=== PATIENT | male | born 1960 | race Caucasian/White ===

== ENCOUNTER 2023-01-08 10:22 | Outpatient (OUT) | payer BC, SELFPAY ==
[2023-01-08 10:55] LABS: Basophils Absolute Auto 0.1 10^3/uL (0.0-0.1); Basophils Percent Auto 0.9 % (0.2-2.0); Eosinophils Absolute Auto 0.1 10^3/uL (0.0-0.7); Eosinophils Percent Auto 0.8 % (0.9-7.0); Hematocrit 44.6 % (42.0-54.0); Hemoglobin 15.1 g/dL (14.0-18.0); Immature Granulocytes Abs Auto 0.03 10^3/uL (0.00-0.03); Immature Granulocytes Pct Auto 0.4 % (0.0-0.5); Lymphocytes Absolute Auto 2.1 10^3/uL (1.2-3.8); Lymphocytes Percent Auto 26.8 % (20.5-60.0); Mean Corpuscular HGB Conc 33.9 g/dL (29.9-35.2); Mean Corpuscular Hemoglobin 29.7 pg (25.9-34.0); Mean Corpuscular Volume 87.6 fL (80.0-94.0); Mean Platelet Volume 9.6 fL (9.5-13.5); Monocytes Absolute Auto 0.4 10^3/uL (0.3-0.8); Monocytes Percent Auto 5.5 % (1.7-12.0); Neutrophils Absolute Auto 5.1 10^3/uL (1.4-6.5); Neutrophils Percent Auto 65.6 % (43.0-75.0); Platelet Count 187 10^3/uL (150-450); Red Blood Count 5.09 10^6/uL (4.70-6.10); Red Cell Distribution Width 11.5 % (11.0-15.0); White Blood Count 7.8 10^3/uL (4.0-11.0)
[2023-01-08 11:35] LABS: Estimated Average Glucose 103 mg/dL; Glycohemoglobin A1C 5.2 % (4.5-6.2)
[2023-01-08 12:22] LABS: Alanine Aminotransferase 12 U/L (16-63); Albumin Globulin Ratio 1.2; Albumin Level 3.8 g/dL (3.4-5.0); Alkaline Phosphatase 91 U/L (46-116); Anion Gap 8.7; Aspartate Amino Transferase 13 U/L (15-37); BUN Creatinine Ratio 11.8; Bilirubin Total 0.5 mg/dL (0.2-1.0); Calcium 8.7 mg/dL (8.5-10.1); Carbon Dioxide 29.4 mmol/L (21.0-32.0); Chloride 103 mmol/L (98-107); Chol HDL Ratio 3.9; Cholesterol 181 mg/dL (<=200); Estimated GFR (African America >60 (>=60); Estimated GFR (Non-African Ame >60 (>=60); Free T3 2.21 pg/mL (2.18-3.98); Globulin 3.1 g/dL; Glucose 90 mg/dL (74-106); HDL Cholesterol 47 mg/dL (40-60); LDL Cholesterol Calculated 116.2 mg/dL; Potassium 4.1 mmol/L (3.5-5.1); Sodium 137 mmol/L (136-145); Thyroid Stimulating Hormone 1.784 uIU/mL (0.358-3.740); Total Protein 6.9 g/dL (6.4-8.2); Triglycerides 89 mg/dL (<=150); VLDL CHOLESTEROL 17.8 mg/dL
[2023-01-09 05:07] LABS: PSA, Free 0.71 ng/mL; Prostate Specific Ag 3.4 ng/mL (0.0-4.0)
== END 2023-01-08 10:23 | disposition home or self-care (01) ==
LOC: LAB 10:25
PROVIDERS: PCP Family Medicine; Visit Provider Family Medicine
DX: Z00.00 Encounter for general adult medical examination without abnormal findings (principal)
CPT/HCPCS: 36415; 80053; 80061; 83036; 84153; 84154; 84436; 84443; 84481; 85025

== ENCOUNTER 2024-01-18 09:19 | Outpatient (OUT) | payer BC, SELFPAY ==
[2024-01-18 10:09] LABS: Basophils Absolute Auto 0.1 10^3/uL (0.0-0.1); Basophils Percent Auto 1.1 % (0.2-2.0); Eosinophils Absolute Auto 0.1 10^3/uL (0.0-0.7); Hematocrit 44.4 % (42.0-54.0); Hemoglobin 14.9 g/dL (14.0-18.0); Immature Granulocytes Abs Auto 0.01 10^3/uL (0.00-0.03); Immature Granulocytes Pct Auto 0.2 % (0.0-0.5); Lymphocytes Percent Auto 32.5 % (20.5-60.0); Mean Corpuscular HGB Conc 33.6 g/dL (29.9-35.2); Mean Corpuscular Hemoglobin 29.4 pg (25.9-34.0); Mean Corpuscular Volume 87.7 fL (80.0-94.0); Mean Platelet Volume 9.7 fL (9.5-13.5); Monocytes Absolute Auto 0.4 10^3/uL (0.3-0.8); Monocytes Percent Auto 6.3 % (1.7-12.0); Neutrophils Absolute Auto 3.7 10^3/uL (1.4-6.5); Neutrophils Percent Auto 58.9 % (43.0-75.0); Platelet Count 181 10^3/uL (150-450); Red Blood Count 5.06 10^6/uL (4.70-6.10); Red Cell Distribution Width 11.9 % (11.0-15.0); White Blood Count 6.2 10^3/uL (4.0-11.0)
[2024-01-18 10:39] LABS: Alanine Aminotransferase 16 U/L (16-63); Albumin Globulin Ratio 1.1; Albumin Level 3.5 g/dL (3.4-5.0); Alkaline Phosphatase 93 U/L (46-116); Anion Gap 12.6; Aspartate Amino Transferase 16 U/L (15-37); BUN Creatinine Ratio 16.3; Bilirubin Total 0.5 mg/dL (0.2-1.0); Calcium 8.8 mg/dL (8.5-10.1); Carbon Dioxide 25.8 mmol/L (21.0-32.0); Chloride 103 mmol/L (98-107); Chol HDL Ratio 4.1; Cholesterol 186 mg/dL (<=200); Estimated Average Glucose 108 mg/dL; Estimated GFR (African America >60 (>=60); Estimated GFR (Non-African Ame >60 (>=60); Globulin 3.2 g/dL; Glucose 96 mg/dL (74-106); Glycohemoglobin A1C 5.4 % (4.5-6.2); HDL Cholesterol 45 mg/dL (40-60); LDL Cholesterol Calculated 121.8 mg/dL; Potassium 4.4 mmol/L (3.5-5.1); Sodium 137 mmol/L (136-145); Thyroid Stimulating Hormone 2.122 uIU/mL (0.358-3.740); Total Protein 6.7 g/dL (6.4-8.2); Triglycerides 96 mg/dL (<=150); VLDL CHOLESTEROL 19.2 mg/dL
[2024-01-18 10:58] LABS: Free T4 0.74 ng/dL (0.76-1.46)
[2024-01-19 04:07] LABS: PSA, Free 0.88 ng/mL; Prostate Specific Ag 3.8 ng/mL (0.0-4.0)
== END 2024-01-18 09:20 | disposition home or self-care (01) ==
LOC: LAB 09:20
PROVIDERS: PCP Family Medicine; Visit Provider Family Medicine
DX: Z00.00 Encounter for general adult medical examination without abnormal findings (principal); R97.20 Elevated prostate specific antigen [PSA]
CPT/HCPCS: 36415; 80053; 80061; 83036; 84153; 84154; 84439; 84443; 85025

== ENCOUNTER 2024-01-25 07:26 | Outpatient (OUT) | payer BC, SELFPAY ==
--- OUTSIDE RECORDS SUMMARY | 2024-01-25 07:31 | XMS_ITS | CCD ---
Author Organization [facility] Care Team Providers Care Art Gallery Director Name Role Phone ODETTE ., DR DUFF Admitting Unavailable HOY ., DR DUFF Attending Unavailable HOY ., DR DUFF Primary Care Unavailable HOY ., DR DUFF Consulting Unavailable LUPIS HERNDON Admitting Unavailable LUPIS HERNDON Attending Unavailable HOY ., DR DUFF Primary Care Unavailable LUPIS HERNDON Consulting Unavailable HOY ., DR DUFF Admitting Unavailable HOY ., DR DUFF Attending Unavailable HOY ., DR DUFF Primary Care Unavailable HOY ., DR DUFF Consulting Unavailable HOY ., DR DUFF Admitting Unavailable HOY ., DR DUFF Attending Unavailable HOY ., DR DUFF Primary Care Unavailable KARLOY ., DR DUFF Consulting Unavailable Omega Pino Primary Care Physician Omega Pino Referring Unavailable Paul SMITH Attending Unavailable LUPIS HERNDON Attending Unavailable Allergies Allergy Classification Reported Allergen(s) Allergy Type Date of Onset Reaction(s) Facility (1 source) No Known Medication Allergies; Translations: [No Known Medication Allergies] Propensity to adverse reactions (disorder) [facility] Repository Medications Current Medications Medication Drug Class(es) Dates Sig (Normalized) Sig (Original) pantoprazole 40 mg extended release oral tablet (2 sources) Proton Pump Inhibitor Start: 01-19-2020 take 1 tablet by mouth once daily pantoprazole 40 mg Oral EC Tab 40 mg = 1 tab(s), Oral, Daily, # 30 tab(s), Refills(s) 0 Start Date: 01/19/20 Status: Ordered Problems Active Problems Problem Classification Problem Date Documented Date Episodic/Chronic Abdominal hernia (2 sources) Inguinal hernia; Translations: [Unilateral inguinal hernia, without obstruction or gangrene, not specified as recurrent] Onset: 12-21-2023 Episodic Esophageal disorders (3 sources) Gastroesophageal reflux disease 01-19-2020 Chronic Hyperplasia of prostate (8 sources) Benign prostatic hyperplasia with lower urinary tract symptoms; Translations: [Benign prostatic hypertrophy with outflow obstruction] Onset: 08-24-2022 Chronic Other diseases of kidney and ureters (1 source) Urinary tract obstruction; Translations: [Other obstructive and reflux uropathy] Onset: 09-03-2022 Episodic Other male genital disorders (3 sources) Male erectile dysfunction, unspecified; Translations: [Erectile dysfunction] Onset: 09-03-2022 Chronic Other nutritional; endocrine; and metabolic disorders (1 source) Overweight 12-16-2023 Episodic Other nutritional; endocrine; and metabolic disorders (1 source) Overweight in adulthood with body mass index of 25 or more but less than 30 12-21-2023 Episodic Other screening for suspected conditions (not mental disorders or infectious disease) (8 sources) Elevated prostate specific antigen [PSA]; Translations: [Encounter for screening for malignant neoplasm of prostate] Onset: 12-05-2021 Episodic Residual codes; unclassified (1 source) Tobacco user; Translations: [Tobacco use] Onset: 12-21-2023 Episodic Residual codes; unclassified (1 source) Family history of cancer of colon 12-16-2023 Episodic Screening and history of mental health and substance abuse codes (1 source) Tobacco use and exposure - finding 12-21-2023 Chronic Substance-related disorders (2 sources) Smoker 01-19-2020 Chronic Comment on above: Added secondary to d ocumentation in Social History. Unclassified (1 source) CONTACT W/AND (SUSP) EXPOS COVID-19; Translations: [CONTACT W/AND (SUSP) EXPOS COVID-19] Onset: 09-11-2021 Past or Other Problems Problem Classification Problem Date Documented Da te Episodic/Chronic Acute bronchitis (4 sources) Acute bronchitis, unspecified; Translations: [ACUTE BRONCHITIS UNSPECIFIED] Onset: 09-09-2021 Episodic Results Test Name Value Interpretation Reference Range Facil ity Ambulatory Visit Summaryon 0 12-21-2023 Ambulatory Visit Summary Ambulatory Visit Summary FAISAL GARCIA :1960 Visit Date:12/21/2023 Ambulatory Visit Instructions Your Diagnosis Reducible right inguinal hernia Tobacco use Your Care Team Attending Physician - SARAH WALDEN, Paul R Primary Care Physician - Omega Pino MD Referring Physician - Omega Pino MD This Is Your Medications List Contact prescribing physician if questions or concerns pantoprazole (pantoprazole 40 mg Oral EC Tab) Procedures Performed Closed fracture of great toe. Discharge Vitals Heart Rate (Peripheral) 74 Respiratory Rate 16 Blood Pressure 121/77 Height 177.8 cm Height 70 in Weight 82.7 kg Weight 181.94 lb BMI 26.16 Medications What How Much When Instructions Unchanged pantoprazole (pantoprazole 40 mg Oral EC Tab) 1 Tablets By Mouth Every day Contact prescribing physician if questions or concerns Allergies No Known Allergies No Known Medication Allergies Problems Ongoing - Any problem that you are currently receiving treatment for. BMI 26.0-26.9,adult BPH with elevated PSA BPH with urinary obstruction Elevated PSA Erectile dysfunction Family history of colon cancer in father Gastroesophageal reflux disease Overweight Reducible right inguinal hernia Smoker Tobacco use Historical - Any problem that you are no longer receiving treatment for. BPH - benign prostatic hyperplasia GERD - Gastro-esophageal reflux disease Patient Survey You may receive a survey via text or e-mail asking about your office visit. Please share your experience with us by completing your survey. We appreciate your feedback and thank you for choosing us for your care. Normal [facility] Physician Referralon 024 Physician Referral [phone] [id number]. [id number] Normal [facility] PSA, FREE AND TOTAL RATIOon 12-05-2021 % Free PSA 18.3 % Normal [facility] Comment on above: Result Comment: The table below lists the probability of prostate cancer for men with non-suspicious JAMILA results and total PSA between 4 and 10 ng/mL, by patient age (Latoya et al, OZZIE 1998, 279:1542). % Free PSA 50-64 yr 65-75 yr 0.00-10.00% 56% 55% 10.01-15.00% 24% 35% 15.01-20.00% 17% 23% 20.01-25.00% 10% 20% >25.00% 5% 9% Please note: Latoya et al did not make specific recommendations regarding the use of percent free PSA for any other population of men. Performed By: #### P SAFREE #### [facility] [address] [place] [address] Dr. Odell Gates Prostate specific Ag [Mass/Vol] 4.0 ng/mL Normal 0.0-4.[address] [facility] Comment on above: Result Comment: Eduardo HAWLEY methodology. . According to the [place] [employer], Serum PSA should decrease and remain at undetectable levels after radical prostatectomy. The AUA defines biochemical recurrence as an initial PSA value 0.2 ng/mL or greater followed by a subsequent confirmatory PSA value 0.2 ng/mL or greater. Values obtained with different assay methods or kits cannot be used interchangeably. Results cannot be interpreted as absolute evidence of the presence or absence of malignant disease. Performed By: #### P SAFREE #### [facility] [address] [place] [address] Dr. Odell Gates PSA, Free 0.73 ng/mL Normal N/A [facility] Comment on above: Result Comment: Eduardo powell ECLIA methodology. Performed By: #### P SAFREE #### [facility] [address] [place] [address] Dr. Odell Gates CBC AUTO DIFFon 12-03-2021 BASO # 0.1 103/ul Normal 0.0-0.[address] [facility] Comment on above: Performed By: #### C BC #### [facility] [address] [place] [address] Dr. Odell Gates Basophils/100 WBC (Bld) 0.7 % Normal 0.2-2.[address] [facility] Comment on above: Performed By: #### C BC #### [facility] [address] [place] [address] Dr. Odell Gates EO # 0.1 103/ul Normal 0.0-0.[address] [facility] Comment on above: Performed By: #### C BC #### [facility] [address] [place] [address] Dr. Odell Gates Eosinophils/100 WBC (Bld) 1.0 % Normal 0.9-7.[address] [facility] Comment on above: Performed By: #### C BC #### [facility] [address] [place] [address] Dr. Odell Gates Erythrocyte distribution width (RBC) [Ratio] 12.0 % Normal 11.0-15.[address] [facility] Comment on above: Performed By: #### C BC #### [facility] [address] [place] [address] Dr. Odell Gates Hematocrit (Bld) [Volume fraction] 46.7 % Normal 42.0-54.[address] [facility] Comment on above: Performed By: #### C BC #### [facility] [address] [place] [address] Dr. Odell Gates Hemoglobin (Bld) [Mass/Vol] 15.8 g/dL Normal 14.0-18.[address] [facility] Comment on above: Performed By: #### C BC #### [facility] [address] [place] [address] Dr. Odell Gates IG # 0.02 10e3/ul Normal 0.00-0.[address] [facility] Comment on above: Performed By: #### C BC #### [facility] [address] [place] [address] Dr. Odell Gates IG % 0.2 % Normal 0.0-0.[address] [facility] Comment on above: Performed By: #### C BC #### [facility] [address] [place] [address] Dr. Odell Gates LYMPH # 3.0 103/ul Normal 1.2-3.[address] [facility] Comment on above: Performed By: #### C BC #### [facility] [address] [place] [address] Dr. Odell Gates Lymphocytes/100 WBC (Bld) 34.2 % Normal 20.5-60.[address] [facility] Comment on above: Performed By: #### C BC #### [facility] [address] [place] [address] Dr. Odell Gates MANUAL DIFF REQ NO Normal [facility] Comment on above: Performed By: #### C BC #### [facility] [address] [place] [address] Dr. Odell Gates MCH (RBC) [Entitic mass] 29.9 pg Normal 25.9-34.0 [facility] Comment on above: Performed By: #### C BC #### [facility] [address] [address] [address] Odell Gates MCHC (RBC) [Mass/Vol] 33.8 g/dL Normal 29.9-35.[address] [facility] Comment on above: Performed By: #### C BC #### [facility] [address] [address] [address] Odell Gates MCV (RBC) [Entitic vol] 88.3 fL Normal 80.0-94.[address] [facility] Comment on above: Performed By: #### C BC #### [facility] [address] [address] [address] Odell Gates MONO # 0.6 103/ul Normal 0.3-0.[address] [facility] Comment on above: Performed By: #### C BC #### [facility] [address] [place] [address] Dr. Odell Gates Monocytes/100 WBC (Bld) 7.2 % Normal 1.7-12.[address] [facility] Comment on above: Performed By: #### C BC #### [facility] [address] [place] [address] Dr. Odell Gates NEUT # 4.9 103/ul Normal 1.4-6.[address] [facility] Comment on above: Performed By: #### C BC #### [facility] [address] [address] [address] Odell Gates Neutrophils/100 WBC (Bld) 56.7 % Normal 43.0-75.[address] [facility] Comment on above: Performed By: #### C BC #### [facility] [address] [address] [address] Odell Gates Platelet mean volume (Bld) [Entitic vol] 9.2 fL Critically low 9.5-13.[address] [facility] Comment on above: Performed By: #### C BC #### [facility] [address] [address] [address] Odell Gates PLT 196 103/ul Normal 150-450 [facility] Comment on above: Performed By: #### C BC #### [facility] [address] [place] [address] Dr. Odell Gates RBC 5.29 106/ul Normal 4.70-6.[address] [facility] Comment on above: Performed By: #### C BC #### [facility] [address] [place] [address] Dr. Odell Gates WBC 8.7 103/ul Normal 4.0-11.[address] [facility] Comment on above: Performed By: #### C BC #### [facility] [address] [place] [address] Dr. Odell Gates GLYCOHEMOGLOBIN A1Con 2021 ADA RECOMMENDATION SEE BELOW Normal [facility] Comment on above: Result Comment: ADA RECOMMENDED LIMIT 4.0 - 6.0 ADA THERAPEUTIC TARGET < 7.0 ACTION SUGGESTED > 7.0 Performed By: #### A 1C #### [facility] [address] [place] [address] Dr. Odell Gates Glucose [Mass/Vol] 105 mg/dL Normal [facility] Comment on above: Performed By: #### A 1C #### [facility] [address] [place] [address] Dr. Odell Gates HbA1c (Bld) [Mass fraction] 5.3 % Normal 4.5-6.[address] [facility] Comment on above: Performed By: #### A 1C #### [facility] [address] [place] [address] Dr. Odell Gates LIPID PROFILEon 12-03-2021 CHOL-HDL RATIO NORM SEE BELOW Normal [facility] Comment on above: Result Comment: 3.3 - 4.4 LOW RISK 4.4 - 7.1 AVERAGE RISK 7.1 - 11.0 MODERATE RISK >11.0 HIGH RISK Performed By: #### L IPID, URIC, CMP #### [facility] [address] [place] [address] Dr. Odell Gates Cholesterol [Mass/Vol] 191 mg/dL Normal <=[address] [facility] Comment on above: Performed By: #### L IPID, URIC, CMP #### [facility] [address] [address] [address] Odell Gates Cholesterol in HDL [Mass/Vol] 44 mg/dL Normal 40-[address] [facility] Comment on above: Performed By: #### L IPID, URIC, CMP #### [facility] [address] [address] [address] Odell Gates Cholesterol in LDL [Mass/Vol] 126.2 mg/dL Normal [facility] Comment on above: Performed By: #### L IPID, URIC, CMP #### [facility] [address] [address] [address] Odell Gates Cholesterol.total/Cho lesterol in HDL [Mass ratio] 4.3 {ratio} Normal [facility] Comment on above: Performed By: #### L IPID, URIC, CMP #### [facility] [address] [address] [address] Odell Gates HDL NORMAL > or = 60 mg/dl - LO W CARDIOVASCULAR RISK <40 mg/dl - HIGH CARDIOVASCULAR RISK Normal [facility] Comment on above: Performed By: #### L IPID, URIC, CMP #### [facility] [address] [address] [address] Odell Gates LDL CALC NORMAL SEE BELOW Normal [facility] Comment on above: Result Comment: <100 mg/dl OPTIMAL 100 - 129 mg/dl NEAR OR ABOVE OPTIMAL 130 - 159 mg/dl BORDERLINE HIGH 160 - 189 mg/dl HIGH >190 mg/dl VERY HIGH Performed By: #### L IPID, URIC, CMP #### [facility] [address] [address] [address] Odell Gates Triglyceride [Mass/Vol] 104 mg/dL Normal <=150 [facility] Comment on above: Performed By: #### L IPID, URIC, CMP #### [facility] [address] [address] [address] Odell Gates VLDL CALC 20.8 mg/dL Normal [facility] Comment on above: Performed By: #### L IPID, URIC, CMP #### [facility] [address] [address] [address] Odell Gates OCC BLD IMMUNO SCREENon 11-20 OCCULT BLOOD Negative Normal NEGATIVE [facility] Comment on above: Performed By: #### O BSCRN #### [facility] [address] [address] [address] Odell Gates PROF 14(COMP METB)on 022 Albumin [Mass/Vol] 3.7 g/dL Normal 3.4-5.0 [facility] Comment on above: Performed By: #### L IPID, URIC, CMP #### [facility] [address] [address] [address] Odell Gates Albumin/Globulin [Mass ratio] 1.1 {ratio} Normal [facility] Comment on above: Performed By: #### L IPID, URIC, CMP #### [facility] [address] [place] [address] Dr. Odell Gates ALP [Catalytic activity/Vol] 83 U/L Normal 46-[address] [facility] Comment on above: Performed By: #### L IPID, URIC, CMP #### [facility] [address] [address] [address] Odell Gates ALT [Catalytic activity/Vol] 20 U/L Normal 16-[address] [facility] Comment on above: Performed By: #### L IPID, URIC, CMP #### [facility] [address] [place] [address] Dr. Odell Gates Anion gap [Moles/Vol] 11.9 mmol/L Normal [facility] Comment on above: Performed By: #### L IPID, URIC, CMP #### [facility] [address] [address] [address] Odell Gates AST [Catalytic activity/Vol] 16 U/L Normal 15-[address] [facility] Comment on above: Performed By: #### L IPID, URIC, CMP #### [facility] [address] [address] [address] Odell Gates Bilirubin [Mass/Vol] 0.4 mg/dL Normal 0.2-1.[address] [facility] Comment on above: Performed By: #### L IPID, URIC, CMP #### [facility] [address] [address] [address] Odell Gates Calcium [Mass/Vol] 9.0 mg/dL Normal 8.5-10.1 [facility] Comment on above: Performed By: #### L IPID, URIC, CMP #### [facility] [address] [address] [address] Odell Gates Chloride [Moles/Vol] 104 mmol/L Normal 98-107 [facility] Comment on above: Performed By: #### L IPID, URIC, CMP #### [facility] [address] [address] [address] Odell Gates CO2 [Moles/Vol] 26.3 mmol/L Normal 21.0-32.0 [facility] Comment on above: Performed By: #### L IPID, URIC, CMP #### [facility] [address] [address] [address] Odell Gates Creatinine [Mass/Vol] 1.10 mg/dL Normal 0.70-1.[address] [facility] Comment on above: Performed By: #### L IPID, URIC, CMP #### [facility] [address] [place] [address] Dr. Odell Gates EGFR-AF ISRAELI >60 Normal >=60 [facility] Comment on above: Performed By: #### L IPID, URIC, CMP #### [facility] [address] [address] [address] Odell Gates EGFR-NON AF ISRAELI >60 Normal >=[address] [facility] Comment on above: Performed By: #### L IPID, URIC, CMP #### [facility] [address] [address] [address] Odell Gates Globulin (S) [Mass/Vol] 3.3 g/dL Normal [facility] Comment on above: Performed By: #### L IPID, URIC, CMP #### [facility] [address] [address] [address] Odell Gates Glucose [Mass/Vol] 87 mg/dL Normal 74-106 [facility] Comment on above: Performed By: #### L IPID, URIC, CMP #### [facility] [address] [address] [address] Odell Gates Potassium [Moles/Vol] 4.2 mmol/L Normal 3.5-5.[address] [facility] Comment on above: Performed By: #### L IPID, URIC, CMP #### [facility] [address] [place] [address] Dr. Odell Gates Protein [Mass/Vol] 7.0 g/dL Normal 6.4-8.2 [facility] Comment on above: Performed By: #### L IPID, URIC, CMP #### [facility] [address] [place] [address] Dr. Odell Gates Sodium [Moles/Vol] 138 mmol/L Normal 136-145 [facility] Comment on above: Performed By: #### L IPID, URIC, CMP #### [facility] [address] [place] [address] Dr. Odell Gates Urea nitrogen [Mass/Vol] 17.0 mg/dL Normal 7.0-18.[address] [facility] Comment on above: Performed By: #### L IPID, URIC, CMP #### [facility] [address] [place] [address] Dr. Odell aGtes Urea nitrogen/Creatinine [Mass ratio] 15.5 mg/mg Normal [facility] Comment on above: Performed By: #### L IPID, URIC, CMP #### [facility] [address] [place] [address] Dr. Odell Gates URIC ACID SERUMon 12-03-2021 Urate [Mass/Vol] 5.0 mg/dL Normal 3.5-7.2 [facility] Comment on above: Performed By: #### L IPID, URIC, CMP #### [facility] [address] [place] [address] Dr. Odell Gates [facility]on 08-21 SARS-CoV-2 (COVID-19) RNA PRAFUL+probe Ql (Unsp spec) Not detected Normal NOT DETECTED [facility] Comment on above: Result Comment: When diagnostic testing is negative, the possibility of a false negative should be considered in the context of a patient's recent exposures and the presence of clinical signs and symptoms consistent with SARS-CoV-2. This test is not yet approved or cleared by the [place] Food and Drug Administration (FDA). This test was developed by [employer], [place], [place]. The performance characteristics of this test were validated by [facility]. The results are not intended to be used as the sole means for clinical diagnosis or patient management decisions. [facility] is authorized under Clinical Laboratory Improvement Amendments (CLIA) to perform high- complexity testing. This test is not yet approved or cleared by the [place] FDA. When there are no FDA-approved or cleared tests available, and other criteria are met, FDA can make tests available under an emergency access mechanism called an Emergency Use Authorization (EUA). The EUA for this test is supported by the [place] of Health and Human Service's declaration that circumstances exist to justify the emergency use of in vitro diagnostics for the detection and/or diagnosis of the virus that causes COVID-19. This EUA will remain in effect for the duration of the COVID-19 declaration justifying emergency of IVDs, unless it is terminated or revoked by the FDA (after which the test may no longer be used). Performed By: #### C TB #### [facility] [address] [place] [address] Dr. Odell Gates Vital Signs Date Time Vital Sign Value Performing Clinician Tana chavez 12-21-2023 14:18-0400 Blood Pressure Location Paul SMITH [facility] [place] 12-21-2023 14:18-0400 Diastolic blood pressure 77 mm[Hg] Paul SMITH [facility] [place] 12-21-2023 14:18-0400 Heart rate 74 /min Paul SMITH [facility] [place] 12-21-2023 14:18-0400 Respiratory rate 16 /min Paul SMITH [facility] [place] 12-21-2023 14:18-0400 Systolic blood pressure 121 mm[Hg] Paul SARAH [facility] 09-03-2022 13:02-0400 Blood Pressure Location LUPIS HERNDON [facility] 09-03-2022 13:02-0400 Diastolic blood pressure 90 mm[Hg] LUPIS HERNDON [facility] 09-03-2022 13:02-0400 Heart rate 79 /min LUPIS KATRINA [facility] [facility] 09-03-2022 13:02-0400 Respiratory rate 16 /min LUPIS HERNDON [facility] 09-03-2022 13:02-0400 Systolic blood pressure 137 mm[Hg] LUPIS HERNDON [facility] Encounters Encounter Date Encounter Type Care Provider Facility Start: 12-21-2023 End: 12-21-2023 ambulatory Omega Hoy Facility:[facility] Start: 12-21-2023 End: 12-21-2023 Patient encounter procedure Paul SMITH [facility] Start: 12-14-2023 ambulatory Omega Hoy Facility:[facility] Start: 09-08-2023 ambulatory LUPIS HERNDON Facili ty:[facility] Start: 09-03-2022 End: 09-03-2022 Patient encounter procedure LUPIS Powell KATRINA [facility] Start: 08-19-2022 End: 08-20-2022 ambulatory LUPIS HERNDON Facility:[facility] Start: 12-05-2021 Encounter for genera l adult medical examination without abnormal findings DR OMEGA PINO . [facility] Start: 12-04-2021 End: 12-04-[address] OMEGA PINO . Facility:[facility] Start: 12-03-2021 End: 12-04-[address] OMEGA PINO . Facility:[facility] Start: 12-03-2021 End: 12-04-2021 Encounter for general adult medical examination without abnormal findings DR OMEGA PINO . Facility:[facility] Start: 09-09-2021 End: 09-09-[address] OMEGA PINO . Facility:[facility] Procedures Date Procedure Procedure Detail Performing Clinician Start: 08-19-[address] PETAR PINO . Comment on above: Performed By: #### P SAD #### [facility] [address] [place] [address] Dr. Odell Gates Start: 12-03-[address] PETAR PINO . Comment on above: Performed By: #### P SASC #### [facility] [address] [address] [address] Odell Gates Closed fracture of g reat toe (disorder) Paul RAFAELL Toe structure (body structure) LUPIS HERNDON Comment on above: Left toe crushed Immunizations Immunization Date Immunization Notes Care Provider Fa cility 04-26-2021 SARS-CoV-2 (COVID-19 ) Ad26 vaccine, recombinant LUPIS KATRINA [facility] Comment on above: Result Comment: 2022: [id number] 11-24-2020 SARS-CoV-2 (COVID-19 ) Ad26 vaccine, recombinant LUPIS KATRINA [facility] Comment on above: Result Comment: 2022: --SELECT TARGET POPULATION/OCCUPATION-- 06-22-2020 SARS-CoV-2 (COVID-19 ) Ad26 vaccine, recombinant LUPIS KATRINA [facility] 08-05-2017 tetanus toxoid, redu alba diphtheria toxoid, and acellular pertussis vaccine, adsorbed LUPIS HERNDON [facility] Payers Date Payer Category Payer Unknown [id number] [id number] [id number] 1960 Unknown [id number] 2.16.84 [id number] 1960 Unknown [id number] 2.16.84 [id number] 1960 Unknown [id number] 2.16.84 [id number] 1960 Unknown [id number] 2.16.8 [id number] 1960 Unknown [id number] 2.16.8 [id number] 1959 Unknown [id number] Social History Date Type Detail Facility Start: 09-03-2022 End: 12-21-2023 Tobacco smoking status Heavy tobacco smoker (finding) [facility] Sex Assigned At Male [facility] [place] Functional Status Date Assessment Result Facility 12-21-2023 Functional Status N/A [facility] [place] 09-03-2022 Functional Status N/A [facility] Clinical Note 12-21-2023 Note Date & Type Note Facility 12-21-2023 Note General Surgery Offi ce/Clinic Note Chief Complaint consultation for inguinal henria HPI Staff 63 year old male presents on consultation from Dr. Pino for right inguinal hernia. Reports noting bulge approximately one month ago. Reports bulge waxes and wanes in size but does not completely reduce. Denies bulge being red. Denies pain or discomfort. Denies nausea, vomiting or bowel changes. No imaging completed. History of Present Illness 63 yo male with h/o GERD, BPH, referred for 1 month h/o right inguinal bulge/pain, noticed after moving a mattress; currently denies pain, still with bulge, no skin changes, increases with straining/cough; no N/V or bowel changes; no previous abd operations; no imaging; no asa or NSAID use; smokes daily. Review of Systems PHQ Score Initial Depression Screen Score: 0 SCORE ROS - Provider Constitutional: no fever, no sweats, no weight loss. Eyes: no glasses, no blurred vision, no visual loss. ENMT: no dentures, no hoarseness, no swallowing difficulties, no hearing loss, no ear infection(s), no nose bleeds. Cardiovascular: normal blood pressure, no chest pain, regular heartbeat, no heart murmur. Respiratory: no shortness of breath, no cough, no asthma, no wheezing. Gastrointestinal: no nausea, no vomiting, no diarrhea, no constipation, no blood in stool, no change in bowel habits, no abdominal pain, no hepatitis. Genitourinary: no kidney stones, no urine infection, no dysuria. Musculoskeletal: no pain, no weakness. Skin: no changing moles, no rash, no skin lumps. Neurologic: no seizures, no epilepsy, no headache. Psychiatric: no emotional or psychiatric problem. Heme/Lymph: no bleeding problems, no anemia, no blood clots, no transfusions. Allergy/Immunologic: no swollen lymph nodes/glands, no IV drug abuse. Other: Additional ROS info: Except as noted in the above Review of Systems and in the History of Present Illness, all other systems have been reviewed and are negative or noncontributory. Physical Exam Vitals & Measurements HR: 74(Peripheral) RR: 16 BP: 121/77 HT: 70 in HT: 177.8 cm WT: 82.7 kg WT: 181.94 lb BMI: 26.16 HEENT: normal conjunctiva, sclera clear, no scleral icterus, EOM intact, PERRLA, oral mucosa moist without lesions. Neck: trachea midline, no mass, symmetric, no thyromegaly or nodules, no adenopathy Respiratory: lungs CTA, respirations non labored. Cardiovascular: regular rate and rhythm, no murmur, no pedal edema or varicosities. Gastrointestinal: soft, non distended, no tenderness, no masses, reducible right inguinal hernia, no skin changes, nontender, diastasis recti no, no hepatosplenomegaly; normal bs Lymphatic: no cervical adenopathy, no supraclavicular adenopathy, no inguinal adenopathy. Musculoskeletal: normal gait, digits and nails without infection, nodes, cyanosis, clubbing. Skin: no rashes, no lesions, no ulcers, no subcutaneous nodules, induration. Psychiatric/Neuro: oriented to time, place, person, judgement normal, affect appropriate for age, insight intact, no focal deficits. Tests: review of old records completed , Discussed surgical options, risks, and possible complications with patient. Assessment/Plan 1. Reducible right inguinal hernia (K40.90: Unilateral inguinal hernia, without obstruction or gangrene, not specified as recurrent) plan right inguinal herniorrhaphy with mesh insertion, informed consent obtained. signs/symptoms of incarceration/strangulation of hernia explained in detail, and patient understands that he should seek prompt medical evaluation if they were to occur. Patient instructed to decrease, or ideally quit, tobacco use in the perioperative period to minimize lung and wound complications, as well as risk of recurrent hernia. Ancef 2 gms IV prior to OR TAP block per anesthesia SCDs 2. Tobacco use (Z72.0: Tobacco use) We strongly recommend to quit tobacco use. Cigarette smoking harms nearly every organ of the body, causes many diseases, and reduces the health of smokers in general. Quitting smoking lowers your risk for smoking-related diseases and can add years to your life. We encourage you to visit www.smokefree.gov access to helpful resources including free telephone support. If you decide on prescription treatment to help you quit, your family doctor would be happy to provide these. Follow-up No qualifying data available Problem List/Past Medical History Ongoing BMI 26.0-26.9,adult BPH with elevated PSA BPH with urinary obstruction Elevated PSA Erectile dysfunction Family history of colon cancer in father Gastroesophageal reflux disease Overweight Reducible right inguinal hernia Smoker Tobacco use Historical BPH - benign prostatic hyperplasia GERD - Gastro-esophageal reflux disease Procedure/Surgical History Closed fracture of great toe. Medications pantoprazole 40 mg Oral EC Tab, 40 mg= 1 tab(s), Oral, Daily Allergies No Known Allergies No Known Medication Allergies Social (more content not included)... [facility] Comment on above: Result Comment: Elec tronically Signed By: SARAH WALDEN, Paul Baker\Date and Time Signed: 12/21/23 14:51 EDT Hospital Discharge instructions 09-03-2022 Note Date & Type Note Facility 09-03-2022 Hospital Discharg e instructions Patient Education 09/03/2022 13:35:44 Erectile Dysfunction Erectile Dysfunction Erectile dysfunction (ED) is the inability to get or keep an erection in order to have sexual intercourse. Erectile dysfunction may include: Inability to get an erection. Lack of enough hardness of the erection to allow penetration. Loss of the erection before sex is finished. What are the causes? This condition may be caused by: Certain medicines, such as: ?Pain relievers. ?Antihistamines. ?Antidepressants. ?Blood pressure medicines. ?Water pills (diuretics). ?Ulcer medicines. ?Muscle relaxants. ?Drugs. Excessive drinking. Psychological causes, such as: ?Anxiety. ?Depression. ?Sadness. ?Exhaustion. ?Performance fear. ?Stress. Physical causes, such as: ?Artery problems. This may include diabetes, smoking, liver disease, or atherosclerosis. ?High blood pressure. ?Hormonal problems, such as low testosterone. ?Obesity. ?Nerve problems. This may include back or pelvic injuries, diabetes mellitus, multiple sclerosis, or Parkinson disease. What are the signs or symptoms? Symptoms of this condition include: Inability to get an erection. Lack of enough hardness of the erection to allow penetration. Loss of the erection before sex is finished. Normal erections at some times, but with frequent unsatisfactory episodes. Low sexual satisfaction in either partner due to erection problems. A curved penis occurring with erection. The curve may cause pain or the penis may be too curved to allow for intercourse. Never having nighttime erections. How is this diagnosed? This condition is often diagnosed by: Performing a physical exam to find other diseases or specific problems with the penis. Asking you detailed questions about the problem. Performing blood tests to check for diabetes mellitus or to measure hormone levels. Performing other tests to check for underlying health conditions. Performing an ultrasound exam to check for scarring. Performing a test to check blood flow to the penis. Doing a sleep study at home to measure nighttime erections. How is this treated? This condition may be treated by: Medicine taken by mouth to help you achieve an erection (oral medicine). Hormone replacement therapy to replace low testosterone levels. Medicine that is injected into the penis. Your health care provider may instruct you how to give yourself these injections at home. Vacuum pump. This is a pump with a ring on it. The pump and ring are placed on the penis and used to create pressure that helps the penis become erect. Penile implant surgery. In this procedure, you may receive: ?An inflatable implant. This consists of cylinders, a pump, and a reservoir. The cylinders can be inflated with a fluid that helps to create an erection, and they can be deflated after intercourse. ?A semi-rigid implant. This consists of two silicone rubber rods. The rods provide some rigidity. They are also flexible, so the penis can both curve downward in its normal position and become straight for sexual intercourse. Blood vessel surgery, to improve blood flow to the penis. During this procedure, a blood vessel from a different part of the body is placed into the penis to allow blood to flow around (bypass) damaged or blocked blood vessels. Lifestyle changes, such as exercising more, losing weight, and quitting smoking. Follow these instructions at home: Medicines Take aodu-wli-hrrfwvw and prescription medicines only as told by your health care provider. Do not increase the dosage without first discussing it with your health care provider. If you are using self-injections, perform injections as directed by your health care provider. Make sure to avoid any veins that are on the surface of the penis. After giving an injection, apply pressure to the injection site for 5 minutes. General instructions Exercise regularly, as directed by your health care provider. Work with your health care provider to lose weight, if needed. Do not use any products that contain nicotine or tobacco, such as cigarettes and e-cigarettes. If you need help quitting, ask your health care provider. Before using a vacuum pump, read the instructions that come with the pump and discuss any questions with your health care provider. Keep all follow-up visits as told by your health care provider. This is important. Contact a health care provider if: You feel nauseous. You vomit. Get help right away if: You are taking oral or injectable medicines and you have an erection that lasts longer than 4 hours. If your health care provider is unavailable, go to the nearest emergency room for evaluation. An erection that lasts much longer than 4 hours can result in permanent damage to your penis. You have severe pain in your groin or abdomen. You develop redness or severe swelling of your penis. You have redness spreading up into your groin or lower abdomen. You are unable to urinate. You experience chest pain or a rapid heart beat (palpitations) after taking oral medicines. Summary Erectile dysfunction (ED) is the inability to get or keep an erection during sexual intercourse. This problem can usually be treated successfully. This condition is diagnosed based on a physical exam, your symptoms, and tests to determine the cause. Treatment varies depending on the cause, and may include medicines, hormone therapy, surgery, or vacuum pump. You may need follow-up visits to make sure that you are using your medicines or devices correctly. Get help right away if you are taking or injecting medicines and you have an erection that lasts longer than 4 hours. This information is not intended to replace advice given to you by your health care provider. Make sure you discuss any questions you have with your health care provider. Document Released: 06/05/2001 Document Revised: 05/21/2018 Document Reviewed: 06/24/2017 1,2,3 [employer] Patient Education [employer]. Follow Up Care 08/01/2021 10:11:55 With:LUPIS HERNDON PA-C, URL Address: When:1 year [facility] Evaluation + Plan note Note Date & Type Note Facility Evaluation + Plan note Future Appointments Appointment Date:09/08/2023 08:30:00 AM Scheduled Provider:LUPIS HERNDON PA-C Location:[facility] Appointment Type:URO Office Visit Diagnostic Tests PendingPSA Total 09/03/22PSA Total 09/03/22 [facility] Hospital course Narrative Note Date & Type Note Facility Hospital course Narrative No data available for this section [facility] Hospital Discharge instructions Note Date & Type Note Facility Hospital Discharge instructions No data available for this section [facility] [place] Progress note Note Date & Type Note Facility Progress note No data available for this section [facility] Summary Purpose Family History No Family History Records Found No data available for this section No Family History Records Found Advance Directives No Advanced Directives Records FoundNo Advanced Directives Records Found Additional Source Comments (unrecognized sect ion and content) No Status Records FoundNo Status Records Found INFORMATION SOURCE (unrecogn ized section and content) DATE CREATED AUTHOR 08/26/2022 [facility] DATE CREATED AUTHOR AUTHOR'S ORGANIZ ATION 12/23/2023 [facility] Patient Care team informatio n (unrecognized section and content) Personnel Name: Omega Pino MD Address: Address: [address] [place] [address] Personnel Name: Omega Pino MD Address: Address: [address] [place] [address] FOR RECORDS PERTAINING TO PATIENTS WHO ARE OR HAVE BEEN ENROLLED IN A CHEMICAL DEPENDENCY/SUBSTANCEABUSE PROGRAM, SOME INFORMATION MAY BE OMITTED. This clinical summary was aggregated from multiple sources. Caution should be exercised in using it in the provision of clinical care. This summary normalizes information from multiple sources, and as a consequence, information in this document may materially change the coding, format and clinical context of patient data. In addition, data may be omitted in some cases. CLINICAL DECISIONS SHOULD BE BASED ON THE PRIMARY CLINICAL RECORDS. [facility] [employer] [facility]. provides no warranty or guarantee of the accuracy or completeness of information in this document.
--- NOTE | 2024-01-25 09:40 | ECG_ITS ---
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
--- NOTE | 2024-01-25 10:17 | PM.PRESUREVA ---
History of Present Illness History of Present Illness Chief complaint: Right Inguinal Hernia Narrative: Patient presents for preadmission testing. The patient states he noticed a bulge in his right groin in November of this year. He states it does change in size but does not completely reduce. He states it is more irritating than painful and he has not had any associated symptoms. He denies nausea, vomiting, abdominal pain, fever, or any other complaints. Review of Systems ROS Narrative REVIEW OF SYSTEMS: Negative except as stated in HPI, ten or more systems reviewed. Constitutional: No fever, chills, weakness ENT: No sore throat or epistaxis Cardiovascular: No edema, chest pain, palpitations, or activity intolerance Respiratory: No shortness of breath, cough, or wheezing Musculoskeletal: No joint pain or swelling Gastrointestinal: No abdominal pain, constipation, diarrhea, or vomiting Genitourinary: No dysuria or hematuria Neurological: No numbness, tingling, weakness, or headache Psychiatric: No mood changes PFSH PFS Medical History (Updated 01/25/24 @ 09:59 by Fatou Biswas NP) Toe fracture ?S92.919A - Unspecified fracture of unspecified toe(s), initial encounter for closed fracture (ICD-10) GERD (gastroesophageal reflux disease) ?K21.9 - Gastro-esophageal reflux disease without esophagitis (ICD-10) Erectile dysfunction ?N52.9 - Male erectile dysfunction, unspecified (ICD-10) BPH with obstruction/lower urinary tract symptoms ?N40.1 - Benign prostatic hyperplasia with lower urinary tract symptoms (ICD-10) ?N13.8 - Other obstructive and reflux uropathy (ICD-10) Elevated PSA ?R97.20 - Elevated prostate specific antigen [PSA] (ICD-10) Inguinal hernia ?K40.90 - Unilateral inguinal hernia, without obstruction or gangrene, not specified as recurrent (ICD-10) Surgical History (Updated 01/25/24 @ 09:59 by Fatou Biswas NP) H/O foot surgery ?Z98.890 - Other specified postprocedural states (ICD-10) Family History (Updated 01/25/24 @ 10:05 by Fatou Biswas NP) Other Bladder cancer Family history of DVT Family history of lung cancer Family history of stroke Melanoma Social History (Updated 01/25/24 @ 10:02 by Fatou Biswas NP) Within the past year, how often did you have a drink containing alcohol: monthly or less Smoking status: Current every day smoker What tobacco products do you use: cigarettes Cigarettes per day: 10 Years smoked: 10 Smoking pack-years: 5.00 Non-prescribed substance use: denies use 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 Highest level of school completed/degree received: Associate degree: occupational, technical, vocational program Meds Home Medications and Allergies Home Medications ?Medication ?Instructions ?Recorded ?Confirmed ?Type pantoprazole 40 mg tablet,delayed 40 mg PO Q12H PRN heartburn 01/25/24 01/25/24 History release Allergies Allergy/AdvReac Type Severity Reaction Status Date / Time white wine Allergy Hives Uncoded 01/25/24 10:00 Exam Narrative Exam Narrative: Constitutional: Awake, alert, comfortable, well-appearing, nontoxic, interactive, vital signs as charted Head: Normocephalic, atraumatic Neck: Supple, normal appearance, normal range of motion, no meningeal signs, no lymphadenopathy Respiratory: No respiratory distress, breath sounds clear Cardiovascular: Regular rate and rhythm, strong and regular heart tones Abdomen: Normal bowel sounds, soft, no CVA tenderness, mild tender right inguinal hernia noted Musculoskeletal: Normal gait, no swelling or edema Skin: No rashes or induration, no lesions, only visible skin inspected Neuro: No neurological deficits, normal sensation Psychiatric: Oriented ?3, normal affect Assessment and Plan Assessment and Plan (1) Inguinal hernia: Plan Right inguinal hernia repair with mesh scheduled with Dr. Britton February 03, 2024.
== END 2024-01-25 07:27 | disposition home or self-care (01) ==
PROVIDERS: PCP Family Medicine; Visit Provider Surgery
DX: Z01.810 Encounter for preprocedural cardiovascular examination (principal); Z01.818 Encounter for other preprocedural examination; K40.90 Unilateral inguinal hernia, without obstruction or gangrene, not specified as recurrent
CPT/HCPCS: 93005; G0463

== ENCOUNTER 2024-02-03 07:10 | Day surgery (SDC) | payer BC, SELFPAY ==
[2024-01-25 10:13] VITALS: BP 126/83; PULSE 65; TEMP 36.3; O2SAT 96; BMI 25.0
[2024-02-03] VITALS (12 sets, daily range): BP systolic 105–142; BP diastolic 74–96; PULSE 60–86; TEMP 36.1–36.4; O2SAT 91–98; BMI 25.4
--- NOTE | 2024-02-03 | OP_ITS ---
OPERATION DATE: 02/03/2024 PREOPERATIVE DIAGNOSIS: Reducible right inguinal hernia. POSTOPERATIVE DIAGNOSIS: Direct right inguinal hernia. PROCEDURE: Right inguinal herniorrhaphy with Bard mesh insertion. ANESTHESIA: General with laryngeal mask airway as well as left sided TAP block by Dr. Musa. INDICATIONS AND CONSENT: Patient is a 63-year-old male with history of reducible enlarging right inguinal hernia. Indications, risks, benefits, alternatives of proceeding with herniorrhaphy were explained extensively to the patient, including the risks of bleeding, infection, nerve or testicular injury, blood clot, pulmonary embolus, heart attack, anesthetic complications, need for further surgery or mesh removal. All of his questions were answered. Informed consent was obtained. PROCEDURE: Patient brought to the operating room, placed in the supine position. General anesthesia was induced. He had previously undergone a right sided TAP block in the pre-op holding area per Dr. Musa. He was prepped and draped in the usual sterile fashion. A right groin incision was then made in the area of the skin crease and carried down through subcutaneous tissue using sharp dissection as well as electrocautery. Dee?s fascia was divided. The external oblique which was attenuated was opened along the direction of its fibers, down through the external inguinal ring. Cord structures were mobilized and retracted using a Carrie drain. There was noted to be some scarring of the right ilioinguinal nerve branch. It was in close proximity to where the mesh would lay; therefore, it was divided and the ends were ligated with 3-0 Vicryl ties. There was noted to be a wide based direct inguinal hernia that was freed up from the cord structures. The hernia sac was excised. The preperitoneal fat was reduced. The area was then imbricated with interrupted 2-0 Prolene sutures. There was good hemostasis. The Bard patch was then trimmed and a keyhole was created. It was placed in the floor of the inguinal canal. It was then secured circumferentially using interrupted 3-0 Vicryl sutures. The arms were placed around the cord structures and secured. Care was taken to avoid undo tension on the cord structures. The wound was then irrigated with antibiotic saline. There was good hemostasis. The external oblique was closed with a running 3-0 Vicryl suture. The remaining Exparel solution was injected into the subcutaneous tissue. Dee?s fascia was re-approximated with interrupted 3-0 Monocryl suture. The skin was then closed with a 4-0 running subcuticular suture and skin glue. Sterile pressure dressing was applied. Sponge and needle counts were correct x2 per nursing personnel. Patient tolerated procedure well, was sent to recovery room in good condition. CC: Cheikh Mejia
[2024-02-03] MEDS: LACTATED RINGER'S SOLUTION 1,000 ML 50 ML IV (07:52)
[2024-02-03] MEDS: CEFAZOLIN SODIUM 2 GM/50 ML D5W PREMIX IV (08:25)
--- NOTE | 2024-02-03 08:27 | PC.NURSE ---
time out completed at documented. pt positioned per anesthesia,2L O2 via nasal cannula applied per policy,pt on monitor. block began at 0818 and was completed at 0822. pt tolerated without complaints. vitals monitored by the short story writer throughout procedure. pts bed to lowest position with siderails up and call light within reach. pt will by monitored until taken back to the OR. 0816: 115/81, HR: 62 SpO2: 98% 2L O2, Resp: 16 0822: 110/74, HR: 64 SpO2:99% 2L O2, Resp: 14
[2024-02-03] MEDS: 0.9 % SODIUM CHLORIDE 10 ML INJ ×2 (09:09→09:12)
[2024-02-03] MEDS: BUPIVACAINE HCL 0.25% PF 25 MG/10 ML VIAL INJ (09:10)
[2024-02-03] MEDS: BUPIVACAINE LIPOSOME/PF 266 MG/13.3 ML VIAL 13.3 MG INJ (09:10)
[2024-02-03] MEDS: CEFAZOLIN SODIUM 1,000 MG in 0.9 % SODIUM CHLORIDE 10 ML 1 MG IRR (09:11)
== END 2024-02-03 11:10 | disposition home or self-care (01) ==
PROVIDERS: PCP Family Medicine; Visit Provider Surgery
PROC: (CPT 830; principal; 2024-02-03 08:20)
DX: K40.90 Unilateral inguinal hernia, without obstruction or gangrene, not specified as recurrent (principal); F17.210 Nicotine dependence, cigarettes, uncomplicated; K21.9 Gastro-esophageal reflux disease without esophagitis; N40.0 Benign prostatic hyperplasia without lower urinary tract symptoms
CPT/HCPCS: 49505; 64488; 88302; 94667; C1781; J0131; J0665; J0690; J1100; J1170; J1885; J2250; J2405; J2704; J3010

== ENCOUNTER 2024-02-17 08:39 | Outpatient (OUT) | payer BC, SELFPAY ==
--- NOTE | 2024-02-17 08:45 | CT_ITS ---
[address] [address] Patient Name: FAISAL GARCIA MRN: [id number] date: 1960 Sex: M Assigned Patient Location: CT Current Patient Location: CT Accession/Order Number: [id number] Exam Date: 02/17/2024 08:47 Report Date: 02/17/2024 10:30 At the request of: OMEGA PINO Procedure: CT lung screening low-dose EXAMINATION: CT lung screening low-dose HISTORY: WELL ADULT Z00.00; Smoker F17.200 COMPARISON: No relevant comparison available. TECHNIQUE: Axial, Coronal, and Sagittal images were created without the administration of IV contrast material. Dose reduction techniques were achieved by using automated exposure control and/or adjustment of mA and/or kV according to patient size and/or use of iterative reconstruction technique. FINDINGS: LUNGS: A few tiny calcified granulomas. No suspicious nodules or acute infiltrates. No significant emphysematous changes or chronic interstitial changes. PLEURA: No mass, effusion, or pneumothorax. VASCULATURE: No abnormality. ANDREINA: No mass or pathologic adenopathy. MEDIASTINUM: No mass or pathologic adenopathy. CARDIAC: No enlargement, pericardial thickening, or pericardial effusion. Coronary Artery calcifications: Coronary calcifications are mild. AORTA: No aneurysm or dissection. CHEST WALL: No mass or axillary adenopathy BONES: No bone lesion or fracture. LIMITED ABDOMEN: No suspicious findings. Limited images of the upper abdomen. OTHER: Negative. CT/CT lung screening low-dose IMPRESSION: 1. Lung-RADS Category 1 Negative. No nodules and definitely benign nodules. Continue annual screening with LDCT in 12 months. Electronically authenticated by: JAYSON JORGENSEN Date: 02/17/2024 10:30
== END 2024-02-17 08:40 | disposition home or self-care (01) ==
LOC: CT 08:40
PROVIDERS: PCP Family Medicine; Visit Provider Family Medicine
DX: Z00.00 Encounter for general adult medical examination without abnormal findings (principal); F17.200 Nicotine dependence, unspecified, uncomplicated
CPT/HCPCS: 71271

== ENCOUNTER 2025-02-24 10:24 | Outpatient (OUT) | payer BC, SELFPAY ==
--- OUTSIDE RECORDS SUMMARY | 2024-01-18 16:51 | XMS_ITS ---
Author Organization [facility] [place] Address [address] [place] [address] Care Team Providers Care Manufacturing Technologist Name Role Phone Akash Ledesma Primary Care Provider REASON FOR VISIT lab results Encounters Encounter Location Date Provider Diagnosis [facility] [address] [place] [address] 01/18/2024 Akash Ledesma Plan Of Treatment No Information Progress Notes * Kings GARCIADOB: [birth year] (63 yo M)Acc No.[id number]:01/18/2024 Patient: Reynold FRITZ Kings Fishman :1960 A ge:63 Y S ex:Male Address:[address] [place] [id number] * true * Date: Generated for Chiragi bharath/Casimirog/eTransmitting on: 0 02/24/2025 10:29 AM EDT
--- OUTSIDE RECORDS SUMMARY | 2024-01-19 03:58 | XMS_ITS ---
Author Organization [facility] [place] Address [address] [place] [address] Care Team Providers Care Silvering Department Supervisor Name Role Phone Akash Ledesma Primary Care Provider REASON FOR VISIT elevated PSA Encounters Encounter Location Date Provider Diagnosis [facility] [address] [place] [address] 01/19/2024 Aksah Ledesma Plan Of Treatment No Information Progress Notes * Kings GARCIADOB: [birth year] (63 yo M)Acc No.[id number]:01/19/2024 Patient: Reynold FRITZ Kings Fishman :1960 A ge:63 Y S ex:Male Address:[address] [place] [id number] * true * Date: Generated for Chiragi bharath/Fajeremiahg/eTransmitting on: 0 02/24/2025 10:29 AM EDT
--- OUTSIDE RECORDS SUMMARY | 2024-02-17 08:28 | XMS_ITS ---
Author Organization The [facility] in [place] Address [address] [place] [address] Care Team Providers Care Order Manager Name Role Phone Akash Ledesma Primary Care Provider [phone] results Encounters Encounter Location Date Provider Diagnosis [facility] [address] [place] [address] 02/17/2024 Akash Ledesma Plan Of Treatment No Information Progress Notes * Kings GARCIADOB: [birth year] (63 yo M)Acc No.[id number]:02/17/2024 Patient: Reynold FRITZ Kings Fishman :1960 A ge:63 Y S ex:Male Address:[address] [place] [id number] * true * Date: Generated for Chiragi bharath/Casimirog/eTransmitting on: 0 02/24/2025 10:29 AM EDT
--- OUTSIDE RECORDS SUMMARY | 2025-02-17 11:28 | XMS_ITS ---
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 [address] [place] [address] 02/17/2025 Akash Ledesma Cigarette smoker F17.210 Assessments Encounter Date Diagnosis (ICD Code) Assessment Notes Treatment Notes Treatment Clinical Notes Section Notes 02/17/2025 Cigarette smoker (ICD-10 - F17.210) Plan Of Treatment Pending Test Test Name Order Date CT Chest Low Dose for Screening* 025 Progress Notes * Kings GARCIADOB: [birth year] (64 yo M)Acc No.[id number]:02/17/2025 Patient: Reynold FRITZ Kings Fishman :1960 A ge:64 Y S ex:Male Address:[address] [place] [address], [phone] Subjective: * Chief Complaints: * L D CT Lung * Medical History: * Surgical History: * Hospitalization/Major Diagno stic Procedure: * Medications: Objective: * Vitals: * Physical Examination: Assessment: * Assessment: 1. C igarette smoker - F17.210 (Primary) Plan: * Treatment: * Procedure Codes: * true * Date: Generated for Shraddha sinha/Brian/Callie on: 0 02/24/2025 10:28 AM EDT
--- OUTSIDE RECORDS SUMMARY | 2025-02-24 05:30 | XMS_ITS ---
Author Organization [facility] in [place] Address [address] [place] [address] Care Team Providers Care Hvac Manager Name Role Phone Akash Ledesma Primary Care Provider Allergies No Known Allergies REASON FOR VISIT Presents to office alone for wellness Medications Medication SIG (Take, Route, Frequency, Duration) Notes Start Date End Date Status Varenicline Tartrate (Starter) 0.5 MG X 11 & 1 MG X 42 as directed Orally bid 02/24/2025 Activ e Protonix 40 MG 1 tablet Orally Ever y Evening for 30 day(s) 12/05/2022 Not-Taking Social History Tobacco Use: Social History Observation Description Date Details (start date - stop date) Current Smoker NA - NA Tobacco Use/Smoking Question Answer Notes Patient is a current smoker How often do you smoke cigarettes? every day How many cigarettes a day do you smoke? 31 or mo re How soon after you wake up do you smoke your fir st cigarette? after 60 minutes Are you interested in quitting? Ready to quit AUDIT-C (Standard) Question Answer Notes Did you have a drink containing alcohol in the p ast year? No Points 0 Interpretation Negative Vital Signs Weight 184 lbs 02/24/2025 Height 70 in 02/24/2025 Blood pressure systolic 134 mm Hg 02/25/20 25 Blood pressure diastolic 80 mm Hg 025 BMI 26.4 kg/m2 02/24/2025 Procedures Procedure Date Ordered Date Performed Result Body Sit e Cerumen Removal - performed 02/24/2025 02/24/2025 N/A Encounters Encounter Location Date Provider Diagnosis [facility] [address] [facility] [place] [address] 02/24/2025 Akash Ledesma Well adult Z00.00 an d Cerumen impaction H61.20 Assessments Encounter Date Diagnosis (ICD Code) Assessment Notes Treatment Notes Treatment Clinical Notes Section Notes 02/24/2025 Well adult (ICD-10 - Z00.00) 02/24/2025 Cerumen impaction (ICD-10 - H61.20) Plan Of Treatment Medication Medication Name Sig Start Date Stop Date Notes Varenicline Tartrate (Starte r) 0.5 MG X 11 & 1 MG X 42 as directed Orally bid 02/24/2025 Pending Test Test Name Order Date HEMOGLOBIN A1C (GLYCO) 02/24/2025 LIPID PANEL (CHOL/TRIG/HDL/LDL) 02/25/20 25 PSA-FREE AND TOTAL 02/24/2025 STOOL OCCULT BLOOD 02/24/2025 THYROID PANEL (T4/TSH/FREE T3) 5 PSA, SCREENING 02/24/2025 CMP (COMP MET BHAT) w/eGFR CKD-EPI 2024 CBC WITH DIFF 02/24/2025 Progress Notes * Kings GARCIA KyeDOB: [birth year] (64 yo M)Acc No.[id number]:02/24/2025 UNLOCKED PROGRESS NOTE Progress Note Patient: Kings HERNANDEZ Provider: Michelle Ledesma ([facility])MD :1960 A ge:64 Y S ex:Male Date:02/24/2025 Address:[address] [place], [place] [id number] Check In:09:14 AM ESTCheck O ut:09:50 AM EST Subjective: * Chief Complaints: * 1 . Presents to office alone for wellness. * ROS: E ENT: hearing changes d enies. v isual changes d enies.?non-healing mouth sores d enies. s wollen glands or neck lumps d enies. h oarseness d enies. s ore throat d enies. d ifficulty swallowing d enies. n ose bleeds d enies. n david congestion d enies. e ar ache d enies. e ar discharge?denies. r inging in ears d enies. l ight sensitivity d enies. e ye pain d enies. b lurring d enies. e ye irritation d enies. d ouble vision d enies.?vision loss d enies. G eneral/Constitutional: Sweats: D enies. F atigue d enies. S leep problems d enies. A norexia d enies. M alaise d enies. W eight loss d enies.?Fatigue or Weakness d enies. F ever or Chills d enies. C ardiovascular: Shortness of Breath w/lying flat d enies. L ightheadedness/dizziness d enies. C hest tightness/ heavy pressure d enies. S welling of legs, ankles, or feet d enies. W aking up with shortness of breath d enies. C hest pain denies. P alpitations d enies. W eight gain d enies. R espiratory: Chronic or frequent cough d enies. C oughing up blood?denies. D ifficulty breathing d enies. P roductive cough d enies. S noring?denies. S hortness of breath that awakens from sleep (PND) d enies. C hest pain d enies. S putum production d enies. W heezing d enies. M usculoskeletal: Joint pain d enies. J oint Fluid d enies. B ack pain d enies. K nee pain d enies. N belinda pain d enies. J oint Stiffness d enies. M uscle cramps d enies. W eakness of muscles d enies. A rthritis d enies. M uscle aches d enies. P ain in shoulder(s) d enies. S wollen joints d enies. * Medical History: E levated PSA, BPH (benign prostatic hypertrophy). * Surgical History: p in left great toe , Inguinal hernia repair with mesh 02/03/2024. * Family History: F ather: , colon ca, diagnosed with Other malignant neoplasm of unspecified site. M other: alive, Lung cancer, diagnosed with Other malignant neoplasm of unspecified site. B rother(s): alive. S ister(s): alive. S on(s): alive. 1 brother(s) , 3 sister(s) . 1 son(s) - healthy. . * Social History: T obacco Use: T obacco Use/Smoking P atient is a c urrent smoker H ow often do you smoke cigarettes? e very day H ow many cigarettes a day do you smoke? 3 1 or more H ow soon after you wake up do you smoke your first cigarette? a fter 60 minutes A re you interested in quitting? R arley to quit D rug/Alcohol: A RADHA-C (Standard) D id you have a drink containing alcohol in the past year? N o P oints 0 I nterpretation N egative * Medications: N ot-Taking/PRN Protonix(Pantoprazole Sodium) 40 MG Tablet Delayed Release 1 tablet Orally Every Evening , Medication List reviewed and reconciled with the patient * Allergies: N .K.D.A. Objective: * Vitals: W t:184lbs, Ht: 70 in, BP:134/80mm Hg, BMI:26.4Index, Ht-cm: 177.8 cm, Wt-k.46 kg. * Examination: P hysical Exam: GENERAL: w ell developed, well nourished, in no acute distress. HEAD: n ormocephalic/atraumatic. EYES: p upils equal, round and reactive to light, conjunctivae and sclerae normal. EARS: n o deformity or lesion of external ear, canals and TM appear normal bilaterally, TM's intact, not inflamed with normal light reflex, hearing grossly normal to conversational speech. NOSE: n o deformity, discharge, inflammation, or lesions.? MOUTH: m ucous membranes moist, normal oropharynx and posterior pharynx without lesions or exudates, tongue normal, dentition normal. NECK: n belinda supple, no masses or palpable cervical nodes, trachea midline, thyroid without nodules, masses, tenderness, or enlargement. CHEST: n o chest wall deformity, no chest wall tenderness.? LUNGS: n ormal respiratory effort and clear to auscultation, no wheezes, rales, or rhonchi, good air exchange. CARDIO: r egular rate and rhythm, normal S1 and S2, nor murmur, rub, or gallop. PULSES: n ormal capillary refill. ABDOMEN: s oft, non-distended, non-tender, no masses. MUSCULOSKELETAL: n o deformity or scoliosis noted, normal range of motion, joints normal, no erythema, edema, effusion, or ecchymosis. EXTREMITY: n o clubbing, cyanosis, edema, or deformity with normal ROM in both upper and lower bilateral extremities. NEUROLOGIC: g rossly normal. SKIN: n o rashes, ulcerations, or suspicious lesions. LYMPH NODES: n o cervical adenopathy, nodes normal. MENTAL STATUS: a lert and oriented x3, normal mood and affect. Assessment: * Assessment: 1. W ell adult - Z00.00 (Primary) 2 . C erumen impaction - H61.20 ? Plan: * Treatment: 2. C erumen impaction P rocedure: Cerumen Removal - performed (Performed Date - 02/24/2025) * Procedure Codes: 6 9210 REMOVE IMPACTED CERUMEN * Preventive Medicine: Screenings/Counseling: B AR ACTION PLAN Above Normal BMI Follow-up D ietary management education, guidance, and counseling See treatment section of progress note for complete details of management plan. T OBACCO ACTION PLAN Patient counselled on the dangers of tobacco use and urged to quit. 0 02/24/2025 . * * Electronic signature of Akash Ledesma MD, [phone] on 02/24/2025 at 10:29 AM EDT Sign off status: Pending Visit Status: David REYES (Check Out) * Provider: Michelle Ledesma ([facility])MD Date: 0 02/24/2025 Generated for Printi ng/Faxing/eTransmitting on: 0 02/24/2025 10:29 AM EDT History and Physical Notes * Examination Category Sub-Category Detail Notes Category Not es Physical Exam GENERAL: well developed, well nourished, in no acute distress HEAD: normocephalic/atraum atic EYES: pupils equal, round and reactive to light, conjunctivae and sclerae normal EARS: no deformity or lesi on of external ear, canals and TM appear normal bilaterally, TM's intact, not inflamed with normal light reflex, hearing grossly normal to conversational speech NOSE: no deformity, discha rge, inflammation, or lesions MOUTH: mucous membranes david st, normal oropharynx and posterior pharynx without lesions or exudates, tongue normal, dentition normal NECK: neck supple, no mass es or palpable cervical nodes, trachea midline, thyroid without nodules, masses, tenderness, or enlargement CHEST: no chest wall deform ity, no chest wall tenderness LUNGS: normal respiratory e ffort and clear to auscultation, no wheezes, rales, or rhonchi, good air exchange CARDIO: regular rate and rhy thm, normal S1 and S2, nor murmur, rub, or gallop PULSES: normal capillary ref ill ABDOMEN: soft, non-distended, non-tender, no masses RECTAL: MUSCULOSKELETAL: no deformity or scol iosis noted, normal range of motion, joints normal, no erythema, edema, effusion, or ecchymosis EXTREMITY: no clubbing, cyanosi s, edema, or deformity with normal ROM in both upper and lower bilateral extremities NEUROLOGIC: grossly normal SKIN: no rashes, ulceratio ns, or suspicious lesions LYMPH NODES: no cervical adenopat hy, nodes normal MENTAL STATUS: alert and oriented x 3, normal mood and affect
--- OUTSIDE RECORDS SUMMARY | 2025-02-24 10:29 | XMS_ITS | Patient Health Record ---
Author Organization The [facility] in [place] Address [address] [place] [address] Care Team Providers Care Chemical Pathologist Name Role Phone Akash Ledesma Primary Care Provider [phone] Allergies No Known Allergies Reason For Referral No Information Medications Medication SIG (Take, Route, Frequency, Duration) [...] ast year? No Points 0 Interpretation Negative Problems Problem Type SNOMED Code ICD Code Onset Dates Problem Status W/U Status Risk Notes Problem Cigarette smoker (83929901) Cigarette smoker (F17.210) Active confirmed Problem Smoker (63564862) Smoker (F17.200) Active confirmed Problem Well adult (242795576) Well adult (Z00.00) Active confirmed Problem Right inguinal hernia (220610062) Right inguinal hernia (K40.90) Active confirmed Problem Benign prostatic hypertrophy without outflow obstruction (829957986) BPH (benign prostatic hypertrophy) (N40.0) Active confirmed Problem Elevated PSA (729702950) Elevated PSA (R97.20) Active confirmed Vital Signs Blood pressure diastolic 80 mm Hg 02/24/2025 Height 70 in 02/24/2025 Blood pressure systolic 134 mm Hg 02/24/2025 Weight 184 lbs 02/24/2025 BMI 26.4 kg/m2 02/24/2025 Procedures Procedure Date Ordered Date Performed Result Body Sit e Cerumen Removal - performed 02/24/2025 02/24/2025 N/A Encounters Encounter Location Date Provider Diagnosis [facility] [address] [place] [address] 02/17/2025 Akash Hoy Cigarette smoker F17.210 [facility] [address] [place] [address] 02/24/2025 Akash Hoy Well adult Z00.00 an d Cerumen impaction H61.20 Assessments Encounter Date Diagnosis (ICD Code) Assessment Notes Treatment Notes Treatment Clinical Notes Section Notes 02/24/2025 Well adult (ICD-10 - Z00.00) 02/24/2025 Cerumen impaction (ICD-10 - H61.20) 02/17/2025 Cigarette smoker (ICD-10 - F17.210) Plan Of Treatment Pending Test Test Name Order Date CMP (COMPLETE METABOLIC PANEL) 3 HEMOGLOBIN A1C (GLYCO) 01/08/2023 HEMOGLOBIN A1C (GLYCO) 02/24/2025 LIPID PANEL (CHOL/TRIG/HDL/LDL) 01/09/20 23 LIPID PANEL (CHOL/TRIG/HDL/LDL) 02/25/20 25 CBC WITH DIFF 01/08/2023 PSA-FREE AND TOTAL 01/08/2023 PSA-FREE AND TOTAL 01/18/2024 PSA-FREE AND TOTAL 02/24/2025 PSA-FREE AND TOTAL 01/11/2023 CT Chest Low Dose for Screening* 025 CT Chest Low Dose for Screening* 024 STOOL OCCULT BLOOD 02/24/2025 STOOL OCCULT BLOOD 01/08/2023 OCC BLD IMMUNOASSAY 01/18/2024 THYROID PROFILE WITH TSH 01/18/2024 THYROID PANEL (T4/TSH/FREE T3) 3 THYROID PANEL (T4/TSH/FREE T3) 5 PSA, SCREENING 02/24/2025 CMP (COMP MET BHAT) w/eGFR CKD-EPI 2024 CBC WITH DIFF 02/24/2025 Insurance Providers Payer Name Payer Address Payer Phone Subscriber Number Group Number Insured Name Patient Relationship to Insured Coverage Start Date Coverage End Date [employer]ESS PPO PLUS LOCAL PLAN [address] [place] [address] [id number] Kings Forde Self - patient is the insured Medical (General) History Medical History History ICD Code Elevated PSA R97.20 BPH (benign prostatic hypertrophy) N40.0 Surgical History Surgery Date(Month/Year) Inguinal hernia repair with mesh 024 pin left great toe
[2025-02-24 10:42] LABS: Hematocrit 44.5 % (42.0-54.0); Hemoglobin 15.4 g/dL (14.0-18.0); Immature Granulocytes Abs Auto 0.02 10^3/uL (0.00-0.03); Immature Granulocytes Pct Auto 0.2 % (0.0-0.5); Lymphocytes Absolute Auto 2.9 10^3/uL (1.2-3.8); Mean Corpuscular HGB Conc 34.6 g/dL (29.9-35.2); Mean Corpuscular Hemoglobin 29.9 pg (25.9-34.0); Mean Corpuscular Volume 86.4 fL (80.0-94.0); Platelet Count 183 10^3/uL (150-450); Red Blood Count 5.15 10^6/uL (4.70-6.10); White Blood Count 8.1 10^3/uL (4.0-11.0)
[2025-02-24 11:42] LABS: Alanine Aminotransferase 22 U/L (16-63); Albumin Globulin Ratio 1.1; Albumin Level 3.7 g/dL (3.4-5.0); Alkaline Phosphatase 104 U/L (46-116); Anion Gap 13.8; Aspartate Amino Transferase 19 U/L (15-37); Blood Urea Nitrogen 13.0 mg/dL (7.0-18.0); Calcium 8.6 mg/dL (8.5-10.1); Carbon Dioxide 26.2 mmol/L (21.0-32.0); Chloride 103 mmol/L (98-107); Cholesterol 208 mg/dL (<=200); Estimated GFR (African America >60 (>=60 mL/min/1.73m^2); Estimated GFR (Non-African Ame >60 (>=60 mL/min/1.73m^2); Free T3 2.80 pg/mL (2.18-3.98); Globulin 3.3 g/dL; Glucose 85 mg/dL (74-106); HDL Cholesterol 44 mg/dL (40-60); Potassium 4.0 mmol/L (3.5-5.1); Sodium 139 mmol/L (136-145); Thyroid Stimulating Hormone 3.628 uIU/mL (0.358-3.740); Total Protein 7.0 g/dL (6.4-8.2); Triglycerides 91 mg/dL (<=150); VLDL CHOLESTEROL 18.2 mg/dL
[2025-02-25 04:09] LABS: PSA, Free 0.87 ng/mL
== END 2025-02-24 10:25 | disposition home or self-care (01) ==
PROVIDERS: PCP Family Medicine; Visit Provider Family Medicine
DX: Z00.00 Encounter for general adult medical examination without abnormal findings (principal)
CPT/HCPCS: 36415; 80053; 80061; 83036; 84153; 84154; 84436; 84443; 84481; 85025